=== PATIENT | male | born 1945 | race Caucasian/White ===

== ENCOUNTER → 2016-11-29 | Outpatient (CLI) | payer MEDICARE, OTHER ==
[~2016-11-29] MED LIST: ASCO100065 PO; ASPI-482 PO; ATOR40TA PO; CALC600T4 PO; CHOL100014 PO; DOCU100T5 PO; EZET10TA18 PO; FLAX100031 PO; INSU100I13 SQ; INSU100I17 SQ; INSU100V8 SQ; IOHEXOL 300 MG/ML 75 ML VIAL. IV ONE; LOSA1TAB16 PO; LOSA25TA PO; MAGN250T PO; METF10002 PO; NOVALOG; PRAV40TA2 PO; SPIR25TA3 PO; TORS20TA2 PO; [UNRECOGNIZED DRUG - CODE] IV
[2016-11-29 10:08] LABS: BASO # 0.1 x10^3/uL (0.0-0.2); BASO % 1 % (0-3); EOS # 0.3 x10^3/uL (0.0-0.7); EOS % 4 % (0-3); HEMATOCRIT 43.8 % (39.0-53.0); HEMOGLOBIN 14.6 g/dL (13.0-17.5); LYMPH # 2.1 x10^3/uL (1.0-4.8); LYMPH % 30 % (24-48); MEAN CORPUSCULAR HEMOGLOBIN 33 pg (25-35); MEAN CORPUSCULAR HGB CONC 34 g/dL (31-37); MEAN CORPUSCULAR VOLUME 97 fL (79-100); MONO # 0.5 x10^3/uL (0.0-1.1); MONO % 7 % (0-9); NEUT % 58 % (31-73); PLATELET COUNT 260 x10^3/uL (140-400); RED BLOOD COUNT 4.49 x10^6/uL (4.30-5.70); RED CELL DISTRIBUTION WIDTH 13.2 % (11.5-14.5); WHITE BLOOD COUNT 6.9 x10^3/uL (4.0-11.0)
[2016-11-29 10:28] LABS: ALBUMIN 3.6 g/dL (3.4-5.0); CALCIUM 9.5 mg/dL (8.5-10.1); CREATININE 1.1 mg/dL (0.7-1.3); GFR 66.4; POTASSIUM 4.7 mmol/L (3.5-5.1); TOTAL BILIRUBIN 0.5 mg/dL (0.2-1.0); TOTAL PROTEIN 7.3 g/dL (6.4-8.2)
--- NOTE | 2016-11-29 13:18 | RAD ---
CTA of the chest and abdomen with contrast 11/29/2016 Clinical history: Back pain for 5 days. Technique: After the intravenous administration of 90 cc of Omnipaque 300, contiguous, 0.625 mm axial sections were obtained through the chest and abdomen. Multiplanar 3-D MIP and volume rendered 3-D reconstructed images were obtained. One or more of the following individualized dose reduction techniques were utilized for this study: 1. Automated exposure control. 2. Adjustment of the mA and/or kV according to patient size. 3. Use of iterative reconstruction technique. Findings: Comparison study is dated 06/23/2014. Surgical changes are seen consistent with a CABG procedure. Scattered atherosclerotic plaque formation seen involving the thoracic aorta and its branches. The thoracic aorta is tortuous but tapers normally. No aneurysm or dissection is seen. The heart is mildly enlarged. The origins of the brachiocephalic, left common carotid and left subclavian arteries from the thoracic aortic arch are patent. No hilar, mediastinal or axillary lymphadenopathy is seen. Dependent subsegmental atelectasis is seen involving both lungs. No area of consolidation is noted. No pneumothorax or pleural effusion is seen. The liver parenchyma has a decreased attenuation consistent with mild fatty infiltration. The spleen, pancreas, adrenal glands and kidneys are within normal limits. The gallbladder is well-distended. Calcified gallstones are seen within the gallbladder. No free fluid or free air is seen within the abdomen. There is no evidence of bowel obstruction. Moderate atheromatous/atherosclerotic plaque formation is seen involving the abdominal aorta and its branches. The abdominal aorta tapers normally. No aneurysm is seen. The origins of the celiac trunk, superior mesenteric artery and inferior mesenteric artery are patent. Solitary renal arteries are seen bilaterally. The origins are patent. The origins of both common iliac arteries are patent. Impression: Moderate atherosclerotic plaque formation is seen involving the thoracic and abdominal aorta and their branches. No aneurysm or dissection is seen. No area of stenosis or occlusion is noted.
== END | disposition home or self-care (01) ==
LOC: CT 09:40
PROVIDERS: ATTEND Nurse Practitioner Family
DX: M54.5 Low back pain (principal); I70.0 Atherosclerosis of aorta
CPT/HCPCS: 36415; 71275; 74175; 80053; 85027

== ENCOUNTER → 2017-12-12 | Outpatient (CLI) | payer MEDICARE, OTHER ==
[~2017-12-12] MED LIST changes: -IOHEXOL 300 MG/ML 75 ML VIAL. IV ONE; -LOSA1TAB16 PO; +LOSA1TAB19 PO; -MAGN250T PO; +MAGN250T2 PO; -METF10002 PO; +METF10003 PO; -SPIR25TA3 PO; +SPIR25TA5 PO
--- NOTE | 2017-12-12 15:53 | RAD ---
Left Lower Extremity Venous Doppler Ultrasound Indication: Left lower extremity swelling and redness. Comparison: None. Procedure: Color Doppler, spectral Doppler, and grayscale images with and without compression are obtained in the area of the common femoral vein, superficial femoral vein - femoral vein junction, main femoral vein (superficial femoral vein) and popliteal vein. Veins of the proximal calf are also imaged. Findings: There is normal duplex flow, color flow and compressibility of all visualized vein segments. There is no evidence of deep venous thrombosis. Impression: No evidence of left lower extremity deep venous thrombosis. Electronically signed by: Biju Mclaughlin MD (12/12/2017 3:49 PM) [place] [id number]
== END | disposition home or self-care (01) ==
LOC: US 12:12
PROVIDERS: ATTEND Nurse Practitioner Family
DX: M79.89 Other specified soft tissue disorders (principal); E78.5 Hyperlipidemia, unspecified; I12.9 Hypertensive chronic kidney disease with stage 1 through stage 4 chronic kidney disease, or unspecified chronic kidney disease; N18.9 Chronic kidney disease, unspecified; E10.9 Type 1 diabetes mellitus without complications; Z79.4 Long term (current) use of insulin
CPT/HCPCS: 93971

== ENCOUNTER → 2017-12-30 | Outpatient (CLI) | payer MEDICARE, OTHER ==
--- NOTE | 2017-12-30 16:03 | RAD ---
INDICATION: Left shoulder pain. TECHNIQUE: 3 views of the left shoulder are submitted for review. No comparison is available. FINDINGS: There is no fracture or dislocation. There are findings suggesting calcific tendinosis. There is mild to moderate osteoarthritis at the acromioclavicular joint. IMPRESSION: Degenerative changes. No evidence of an acute fracture or dislocation. Electronically signed by: Kel Mayen MD (12/30/2017 3:59 PM) [facility]
--- NOTE | 2017-12-30 16:04 | RAD ---
INDICATION: Right hip pain. TECHNIQUE: 2 views of the right hip and an AP view of the pelvis are submitted for review. No comparison is available. FINDINGS: There is mild narrowing of the right hip joint. There is no fracture or dislocation. There is mild acetabular spurring. Bony pelvis is intact. There are degenerative changes in the spine. There are vascular calcifications. 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 Electronically signed by: Kel Mayen MD (12/30/2017 4:01 PM) [facility]
== END | disposition home or self-care (01) ==
LOC: DXRAD 15:25
PROVIDERS: ATTEND Specialist
DX: M19.012 Primary osteoarthritis, left shoulder (principal); M16.11 Unilateral primary osteoarthritis, right hip; I12.9 Hypertensive chronic kidney disease with stage 1 through stage 4 chronic kidney disease, or unspecified chronic kidney disease; E11.22 Type 2 diabetes mellitus with diabetic chronic kidney disease; N18.9 Chronic kidney disease, unspecified; E78.5 Hyperlipidemia, unspecified; E78.00 Pure hypercholesterolemia, unspecified
CPT/HCPCS: 73030; 73502

== ENCOUNTER → 2018-11-06 | Outpatient (CLI) | payer MEDICARE, OTHER ==
[~2018-11-06] MED LIST changes: -METF10003 PO; +METF10007 PO
--- NOTE | 2018-11-06 15:43 | RAD ---
LUMBAR SPINE 2-3V Clinical Indication: Low back pain. Comparison: None. Findings: There is degenerative endplate spurring and sclerosis of the lumbar spine. Visualized pelvic bones intact. The vertebral body height and alignment are maintained. Disc spaces relatively maintained. There is lower lumbar facet hypertrophy. Atherosclerotic and ectatic abdominal aorta. IMPRESSION: 1. Mild degenerative spondylosis for patient age. 2. No spondylolisthesis. Electronically signed by: Willie Ochoa MD (11/06/2018 3:40 PM) [id number]
== END | disposition home or self-care (01) ==
LOC: DXRAD 14:22
PROVIDERS: ATTEND Specialist
DX: M47.816 Spondylosis without myelopathy or radiculopathy, lumbar region (principal); M46.06 Spinal enthesopathy, lumbar region; M89.38 Hypertrophy of bone, other site; I70.0 Atherosclerosis of aorta; I77.811 Abdominal aortic ectasia; G95.89 Other specified diseases of spinal cord
CPT/HCPCS: 72100

== ENCOUNTER 2019-05-10 16:57 | Emergency (ER) | payer MEDICARE, OTHER ==
[~2019-05-10] VITALS: Ht 182.9 cm; Wt 155.4 kg
[~2019-05-10 16:57] MED LIST changes: -EZET10TA18 PO; +EZET10TA20 PO
--- NOTE | 2019-05-10 17:33 | PHYS DOC ---
Past History Past Medical History: COPD, Diabetes, Hypertension (TANVIR DIAZ Jr. DO) Past Surgical History: Coronary Bypass Surgery (TANVIR DIAZ Jr. DO) Smoking: Non-smoker Alcohol Use: Rarely Drug Use: None (TANVIR DIAZ Jr., DO) Adult General Chief Complaint Chief Complaint: FEVER HPI HPI Patient is a 74-year-old male who presents from his doctor's office with report of fever and 104 at the doctor's office. His doctor wanted him to come to the emergency room because she was worried about his level of fever. Patient states that he is had a little bit of a dry cough recently. He states that he first noticed the fever yesterday at about 4 PM. He states at that time he was over 101. He denies any headache. He also denies any abdominal pain, nausea or vomiting. He denies any urinary discomfort.[] (TANVIR DIAZ Jr. DO) Review of Systems Review of Systems Constitutional: Denies fever or chills [] Respiratory: Admits to mild cough without shortness of breath [] Cardiovascular: No additional information not addressed in HPI [] GI: Denies abdominal pain, nausea, vomiting or diarrhea [] : Denies dysuria or hematuria [] Musculoskeletal: Denies back pain or joint pain [] Integument: Denies rash or skin lesions [] Neurologic: Denies headache, focal weakness or sensory changes [] All other systems were reviewed and found to be within normal limits, except as documented in this note. (TANVIR DIAZ Jr. DO) Allergies Allergies Allergies Coded Allergies Type Severity Reaction Last Updated Verified carvedilol Allergy Intermediate 05/10/19 Yes loperamide Allergy Intermediate 05/10/19 Yes Sulfa (Sulfonamide Antibiotics) Allergy Unknown 05/10/19 Yes ketoconazole Allergy Unknown 05/10/19 Yes (TANVIR DIAZ Jr., DO) Physical Exam Physical Exam Constitutional: Well developed, well nourished, no acute distress, non-toxic appearance. [] HENT: Normocephalic, atraumatic, bilateral external ears normal, oropharynx moist, no oral exudates, nose normal. [] Eyes: PERRLA, EOMI, conjunctiva normal, no discharge. [] Neck: Normal range of motion, no tenderness, supple, no stridor. [] Cardiovascular: Regular rate and rhythm[] Lungs & Thorax: Bilateral breath sounds clear to auscultation [] Abdomen: Bowel sounds normal, soft, no tenderness. [] Skin: Warm, dry, no erythema, no rash. [] Extremities: No tenderness, no cyanosis, no clubbing, ROM intact. [] Neurologic: Alert and oriented X 3, no focal deficits noted. [] (TANVIR DIAZ Jr., DO) Current Patient Data Vital Signs Vital Signs Date Time Temp Pulse Resp B/P (MAP) Pulse Ox O2 Delivery O2 Flow Rate FiO2 05/10/19 17:07 99.8 78 24 94 Room Air (TANVIR DIAZ Jr., DO) EKG EKG [] (TANVIR DIAZ Jr., DO) Radiology/Procedures Radiology/Procedures [] Impressions: PROCEDURE: CHEST PA & LATERAL PA and lateral chest radiographs 05/10/2019 CLINICAL HISTORY: Fever. Two PA and a lateral digital radiographs of the chest were obtained. Comparison is made to a CT scan of the chest dated 06/23/2014. The patient is post CABG procedure. Mild elevation of the right hemidiaphragm is again noted. The cardiac silhouette is mildly enlarged. The thoracic aorta is tortuous. Atherosclerotic calcification of the thoracic aorta is seen. No acute infiltrate is noted. No pneumothorax or pleural effusion is seen. Degenerative changes are seen involving the thoracic spine. IMPRESSION: No acute abnormality is seen. Electronically signed by: Ryan Hunter MD (05/10/2019 6:00 PM) [facility] (TANVIR DIAZ Jr., DO) Course & Med Decision Making Course & Med Decision Making Pertinent Labs and Imaging studies reviewed. (See chart for details) [] (TANVIR DIAZ Jr., DO) Course & Med Decision Making Patient's labs are significant for slightly elevated creatinine 1.4. He appears to be somewhat dehydrated. I have encouraged the patient did drink more fluids. His chest x-ray is unremarkable. His urinalysis is negative for infection. I'm unsure was causing the patient's fever, but it is likely a viral illness. It still could be influenza as the rapid flu is nonreactive test. I should all this with the patient he states verbal understanding. He would not like to stay in the hospital. If his condition worsens he will return. He is stable for discharge at this time. (HEAD,NADINE DO) Dragon Disclaimer Dragon Disclaimer This electronic medical record was generated, in whole or in part, using a voice recognition dictation system. (TANVIR DIAZ Jr. DO) Departure Departure: Impression: Primary Impression: Fever Additional Impressions: Hyperglycemia Dehydration Disposition: 01 HOME, SELF-CARE Condition: STABLE Referrals: STANISLAW HERNADEZ MD (PCP) Patient Instructions: Fever, Adult, [id number] Problem Qualifiers Primary Impression: Fever Fever type: unspecified Qualified Codes: R50.9 - Fever, unspecified TANVIR DIAZ Jr., DO May 10, 2019 17:33 NADINE HEAD DO May 10, 2019 20:18
--- NOTE | 2019-05-10 18:03 | RAD ---
PA and lateral chest radiographs 05/10/2019 CLINICAL HISTORY: Fever. Two PA and a lateral digital radiographs of the chest were obtained. Comparison is made to a CT scan of the chest dated 06/23/2014. The patient is post CABG procedure. Mild elevation of the right hemidiaphragm is again noted. The cardiac silhouette is mildly enlarged. The thoracic aorta is tortuous. Atherosclerotic calcification of the thoracic aorta is seen. No acute infiltrate is noted. No pneumothorax or pleural effusion is seen. Degenerative changes are seen involving the thoracic spine. IMPRESSION: No acute abnormality is seen. Electronically signed by: Ryan Hunter MD (05/10/2019 6:00 PM) [facility]
[2019-05-10 18:23] LABS: INFLUENZA A PATIENT NEGATIVE (NEGATIVE); INFLUENZA B PATIENT NEGATIVE (NEGATIVE)
[2019-05-10 18:30] VITALS: BP 151/80
[2019-05-10 18:31] LABS: BASO # 0.1 x10^3/uL (0.0-0.2); BASO % 1 % (0-3); EOS % 0 % (0-3); HEMATOCRIT 42.4 % (39.0-53.0); HEMOGLOBIN 14.2 g/dL (13.0-17.5); LYMPH # 0.7 x10^3/uL (1.0-4.8); LYMPH % 7 % (24-48); MEAN CORPUSCULAR HEMOGLOBIN 32 pg (25-35); MEAN CORPUSCULAR HGB CONC 33 g/dL (31-37); MEAN CORPUSCULAR VOLUME 97 fL (79-100); MONO # 0.7 x10^3/uL (0.0-1.1); MONO % 6 % (0-9); NEUT # 9.7 x10^3uL (1.8-7.7); NEUT % 87 % (31-73); PLATELET COUNT 259 x10^3/uL (140-400); RED BLOOD COUNT 4.38 x10^6/uL (4.30-5.70); RED CELL DISTRIBUTION WIDTH 13.3 % (11.5-14.5); WHITE BLOOD COUNT 11.1 x10^3/uL (4.0-11.0)
[2019-05-10 18:45] LABS: ALBUMIN 3.3 g/dL (3.4-5.0); ALBUMIN/GLOBULIN RATIO 0.8 (1.0-1.7); CALCIUM 9.5 mg/dL (8.5-10.1); CREATININE 1.4 mg/dL (0.7-1.3); GFR 49.8; POTASSIUM 4.2 mmol/L (3.5-5.1); TOTAL BILIRUBIN 0.8 mg/dL (0.2-1.0); TOTAL PROTEIN 7.2 g/dL (6.4-8.2)
[2019-05-10 20:07] LABS: BILIRUBIN,URINE NEG (NEG); CLARITY,URINE CLEAR; COLOR,URINE YELLOW; GLUCOSE,URINE NEG (NEG)
[2019-05-10 20:08] LABS: BACTERIA,URINE 0 /HPF (0-FEW); HYALINE CASTS, URINE FEW /HPF; NITRITE,URINE NEG (NEG); RBC,URINE OCC /HPF (0-2); SQUAMOUS EPITHELIAL CELL,UR OCC /LPF; UROBILINOGEN,URINE 0.2 mg/dL (0.2 mg/dL); WBC,URINE OCC /HPF (0-4)
== END 2019-05-10 20:45 | disposition home or self-care (01) ==
LOC: ER 16:57
DX: E11.65 Type 2 diabetes mellitus with hyperglycemia (principal); E86.0 Dehydration; J44.9 Chronic obstructive pulmonary disease, unspecified; I10 Essential (primary) hypertension; Z95.1 Presence of aortocoronary bypass graft; Z88.8 Allergy status to other drugs, medicaments and biological substances; Z88.2 Allergy status to sulfonamides
CPT/HCPCS: 36415; 71046; 80053; 81001; 83605; 85025; 87040; 87070; 87804; 87880; 99285

== ENCOUNTER → 2021-01-05 | Outpatient (CLI) | payer MEDICARE, OTHER ==
[~2021-01-05] MED LIST changes: -CALC600T4 PO; +CALC600T60 PO
--- NOTE | 2021-01-05 15:23 | RAD ---
INDICATION: Reason: PAIN IN LT LEG; PT ON BLOOD THINNERS / Spl. Instructions: / History: COMPARISON: None. TECHNIQUE: Grayscale, color and doppler ultrasound images were obtained of the left lower extremity v enous vasculature. LEFT: No thrombus identified in the common femoral vein, femoral vein, popliteal vein or visualized calf ve ins. IMPRESSION: * No thrombus identified in deep venous system of the left lower extremity. Electronically signed by: Henry Luevano MD (01/05/2021 3:20 PM) [id number]
== END ==
LOC: US 14:32
PROVIDERS: ATTEND Specialist
DX: M79.605 Pain in left leg (principal)
CPT/HCPCS: 93971

== ENCOUNTER → 2021-05-08 | Outpatient (CLI) | payer MEDICARE, OTHER ==
--- NOTE | 2021-05-08 15:02 | RAD ---
EXAM: LUMBAR SPINE 3 VIEWS. HISTORY: Low back pain COMPARISON: 11/06/2018. FINDINGS: Alignment is maintained. No fractures are identified. Degenerative disc disease is moderate across the thoracolumbar junction. Lumbar disc heights are maintained. There is moderate diffuse end plate remodeling throughout the lumbar spine. Facet osteoarthritis is at least moderate from L3 throu gh S1. There are atherosclerotic calcifications of the aorta. Gallstones are noted. There is moderate gaseou s distention of a segment of the colon. IMPRESSION: 1. Degenerative disc disease is moderate at the thoracolumbar junction. Facet osteoarthritis is moder ate within the lower lumbar spine. 2. Cholelithiasis. Electronically signed by: Leydi Beard MD (05/08/2021 3:00 PM) [id number]
== END ==
LOC: RAD 14:30
PROVIDERS: ATTEND Specialist
DX: M51.35 Other intervertebral disc degeneration, thoracolumbar region (principal); K80.20 Calculus of gallbladder without cholecystitis without obstruction; I70.0 Atherosclerosis of aorta; K63.89 Other specified diseases of intestine; M47.817 Spondylosis without myelopathy or radiculopathy, lumbosacral region
CPT/HCPCS: 72100